=== PATIENT | female | born 1960 ===

== ENCOUNTER 2020-03-11 09:44 | Observation (INO) ==
[~2020-03-11 09:44] MED LIST: Povidone-Iodine 45 ML, Sodium Chloride IRRigation 1,000 ML IR ONE; TOTAL JOINT MIXTURE (100ML) INTRAART ONE
[2020-03-11] MEDS ORDERED: ROPIVACAINE/PF/NS 0.25% 1 EACH SYRINGE INTRAART ONE (10:15)
[2020-03-11] MEDS ORDERED: CeFAZolin Syr 2,000MG/20 ML 2,000 MG/20 ML SYRINGE IVPB ONE (10:22)
[2020-03-11] MEDS ORDERED: *HR* Midazolam HCl 2 MG/2 ML VIAL ONE (10:24)
[2020-03-11] MEDS ORDERED: *HR* FentaNYL (PF) 100 MCG/2 ML VIAL ONE (10:24)
[2020-03-11] MEDS ORDERED: Ethanol\\Acetic Acid\\Na Ace\\Ben 1,000 ML IRRIG.SOLN IR ONE (10:30)
[2020-03-11] MEDS ORDERED: Ringers Solution, Lactated 1,000 ML IVC SCH (10:30)
[2020-03-11] MEDS ORDERED: Vancomycin 1,000 MG VIAL ONE (10:30)
[2020-03-11] MEDS ORDERED: *HR* OxyCODONE ER (12 HR) 10 MG TABLET PO ONE (10:36)
[2020-03-11] MEDS ORDERED: Celecoxib 200 MG CAPSULE PO ONE (10:36)
[2020-03-11] MEDS ORDERED: Scopolamine Patch 1.5 MG PATCH.TD72 TD ONE (10:36)
[2020-03-11] MEDS ORDERED: *HR* OxyCODONE Immed Rel 5 MG TABLET PO PRN (10:37)
[2020-03-11] MEDS ORDERED: Ondansetron 4 MG/2 ML VIAL IVP PRN ×2 (10:37→14:32)
[2020-03-11] MEDS ORDERED: *HR* HYDROMORPHONE 2 MG/ML VIAL ONE (11:06)
[2020-03-11] MEDS ORDERED: Lidocaine -MPF 2% 2 ML VIAL ONE (11:06)
[2020-03-11] MEDS ORDERED: Ondansetron 4 MG/2 ML VIAL ONE (11:06)
[2020-03-11] MEDS ORDERED: Dexamethasone 4 MG/ML VIAL ONE (11:06)
[2020-03-11] MEDS ORDERED: *HR* Propofol 200 MG/20 ML VIAL IVP ONE (11:06)
[2020-03-11] MEDS ORDERED: Tranexamic Acid 1,000 MG/10 ML VIAL ONE (11:17)
[2020-03-11] MEDS: *HR* HYDROmorphone PF 0.5 MG/0.5 ML SYRINGE IVP PRN ×4 (13:00→13:30)
[2020-03-11 13:39] LABS: Hematocrit 39.8 % (35.3-44.9)
[2020-03-11] MEDS ORDERED: *HR* HYDROmorphone PF 0.5 MG/0.5 ML SYRINGE IVP PRN (13:44)
[2020-03-11] MEDS ORDERED: Dextrose Gel 15 GM/37.5 ML TUBE PO PRN ×2 (14:32)
[2020-03-11] MEDS ORDERED: Sennosides 8.6 MG TABLET PO PRN (14:32)
[2020-03-11] MEDS ORDERED: Naloxone 0.4 MG/ML INJ IVP PRN (14:32)
[2020-03-11] MEDS ORDERED: HYDROcodone BIT/Homatropine 5 MG TABLET PO PRN (14:32)
[2020-03-11] MEDS ORDERED: *HR* Dextrose 50 % in Water (Vial) 50 ML VIAL IVP PRN (14:32)
[2020-03-11] MEDS ORDERED: MOM Conc 10 ML UD.LIQ PO PRN (14:32)
[2020-03-11] MEDS ORDERED: *HR* Promethazine 25 MG/ML VIAL IVP PRN (14:32)
[2020-03-11] MEDS ORDERED: D5% in Water 1,000 ML IVC PRN (14:32)
[2020-03-11] MEDS: Ringers Solution, Lactated 1,000 ML IVC SCH (15:19)
[2020-03-11] MEDS: Ascorbic Acid 500 MG TABLET PO SCH (16:22)
[2020-03-11] MEDS: Insulin LISPRO 300 UNITS/3 ML VIAL SQ SCH ×2 (18:24→20:50)
[2020-03-11] MEDS: CeFAZolin 2 GM/120 ML BAG IVPB SCH (20:50)
[2020-03-12] MEDS: Ringers Solution, Lactated 1,000 ML IVC SCH (00:10)
[2020-03-12 01:32] LABS: Calcium 9.1 mg/dL (8.6-10.3); Potassium 4.1 mEq/L (3.5-5.1)
[2020-03-12 02:42] LABS: Red Blood Count 3.52 M/mcL (3.82-4.97); White Blood Count 13.7 K/mcL (4.3-11.1)
[2020-03-12 02:43] LABS: Basophils % 0.1 %; Hematocrit 33.1 % (35.3-44.9); Hemoglobin 10.7 g/dL (11.5-15.4); Immature Granulocytes % 0.6 % (0-4); Lymphocytes # 0.5 K/mcL (0.6-4.6); Lymphocytes % 3.6 %; Mean Corpuscular HGB Conc 32.3 g/dL (31.6-35.5); Mean Corpuscular Hemoglobin 30.4 pg (28.0-33.3); Mean Platelet Volume 9.8 fL (9.4-12.4); Monocytes # 0.2 K/mcL (0.0-1.3); Monocytes % 1.7 %; Neutrophils # 12.9 K/mcL (1.6-8.9); Platelet Count 262 K/mcL (140-400); Red Cell Distribution Width 13.2 % (11.5-14.5)
[2020-03-12] MEDS: CeFAZolin 2 GM/120 ML BAG IVPB SCH (03:24)
[2020-03-12] MEDS: Multivit/Ca/Min/Fe/FA 1 TAB TABLET PO SCH (10:22)
[2020-03-12] MEDS: Potassium Chloride Elixir 20 MEQ/15 ML UDC PO SCH (10:22)
[2020-03-12] MEDS: Ascorbic Acid 500 MG TABLET PO SCH ×2 (10:23→18:02)
[2020-03-12] MEDS: Insulin LISPRO 300 UNITS/3 ML VIAL SQ SCH ×4 (10:30→20:14)
[2020-03-12] MEDS: hydroCHLOROthiazide 25 MG TABLET PO SCH (10:51)
[2020-03-12] MEDS: amLODIPine 5 MG TABLET PO SCH (10:51)
[2020-03-12] MEDS: Aspirin Enteric Coated 81 MG Tablet PO SCH (12:31)
[2020-03-12] MEDS: *HR* OxyCODONE Immed Rel 5 MG TABLET PO PRN ×2 (13:47→19:27)
[2020-03-13 01:04] LABS: Basophils % 0.2 %; Eosinophils % 0.3 %; Hematocrit 28.6 % (35.3-44.9); Immature Granulocytes % 0.3 % (0-4); Lymphocytes # 1.3 K/mcL (0.6-4.6); Lymphocytes % 9.1 %; Mean Corpuscular HGB Conc 32.2 g/dL (31.6-35.5); Mean Corpuscular Hemoglobin 30.3 pg (28.0-33.3); Mean Corpuscular Volume 94.1 fL (83.0-100.0); Monocytes # 0.9 K/mcL (0.0-1.3); Monocytes % 6.1 %; Neutrophils # 11.7 K/mcL (1.6-8.9); Platelet Count 219 K/mcL (140-400); Red Blood Count 3.04 M/mcL (3.82-4.97); Red Cell Distribution Width 13.5 % (11.5-14.5)
[2020-03-13 01:07] LABS: Hemoglobin 9.2 g/dL (11.5-15.4)
[2020-03-13 01:23] LABS: Calcium 8.7 mg/dL (8.6-10.3); Potassium 3.7 mEq/L (3.5-5.1)
[2020-03-13] MEDS: *HR* OxyCODONE Immed Rel 5 MG TABLET PO PRN ×3 (03:16→14:55)
[2020-03-13] MEDS: Potassium Chloride Elixir 20 MEQ/15 ML UDC PO SCH (09:06)
[2020-03-13] MEDS: Ascorbic Acid 500 MG TABLET PO SCH (09:06)
[2020-03-13] MEDS: hydroCHLOROthiazide 25 MG TABLET PO SCH (09:06)
[2020-03-13] MEDS: amLODIPine 5 MG TABLET PO SCH (09:06)
[2020-03-13] MEDS: Aspirin Enteric Coated 81 MG Tablet PO SCH (09:07)
[2020-03-13] MEDS: Multivit/Ca/Min/Fe/FA 1 TAB TABLET PO SCH (09:07)
[2020-03-13 10:33] VITALS: BP 129/75
[2020-03-13] MEDS: Insulin LISPRO 300 UNITS/3 ML VIAL SQ SCH (14:45)
== END 2020-03-13 15:36 | disposition home or self-care (01) ==
LOC: SAMDAY 09:44 → 3NENU 09:44
PROVIDERS: ADMIT Orthopaedic Surgery; ATTEND Orthopaedic Surgery